=== PATIENT | male | born 1980 | race Caucasian/White ===

== ENCOUNTER 2016-12-01 19:49 | Emergency (ER) | payer OTHER ==
[~2016-12-01] VITALS: Ht 170.2 cm; Wt 78.9 kg
[2016-12-01 20:05] VITALS: Ht 170.2 cm; Wt 78.9 kg
[2016-12-01] MEDS ORDERED: SOD CHLORIDE 0.9% 1,000 ML IV STA (23:16)
[2016-12-02 00:03] LABS: BASOPHILS % 0.3 % (0.0-2.0); EOSINOPHILS # 0.1 10^3/ul (0.0-0.5); EOSINOPHILS % 1.2 % (0.0-7.0); HEMATOCRIT 48.7 % (42.0-52.0); HEMOGLOBIN 16.9 g/dl (14.0-18.0); LYMPHOCYTES # 2.8 10^3/ul (0.8-2.9); LYMPHOCYTES % 36.7 % (15.0-51.0); MEAN CORPUSCULAR HEMOGLOBIN 30.4 pg (29.0-33.0); MEAN CORPUSCULAR HGB CONC 34.7 g/dl (32.0-37.0); MEAN CORPUSCULAR VOLUME 87.8 fl (82.0-101.0); MEAN PLATELET VOLUME 9.3 fl (7.4-10.4); MONOCYTE # 0.4 10^3/ul (0.3-0.9); MONOCYTES % 5.6 % (0.0-11.0); NEUTROPHIL # 4.3 10^3/ul (1.6-7.5); NEUTROPHILS % 56.2 % (39.0-77.0); PLATELET COUNT 182 10^3/UL (140-440); RED BLOOD COUNT 5.54 10^6/ul (4.70-6.10); RED CELL DISTRIBUTION WIDTH 14.9 % (11.5-14.5); UNCORRECTED WBC 7.6 10^3/ul (4.8-10.8); WHITE BLOOD COUNT 7.6 10^3/ul (4.8-10.8)
[2016-12-02 00:12] LABS: ALBUMIN 4.3 g/dl (3.3-4.9); CONDITION 1; LH ANALYZER COMMENTS 1
[2016-12-02 00:13] LABS: POTASSIUM 3.7 mmol/L (3.5-5.1)
[2016-12-02 00:15] LABS: BILIRUBIN,INDIRECT 0.3 mg/dl (0-1.1); BILIRUBIN,TOTAL 0.3 mg/dl (0.2-1.3); CREATININE 0.83 mg/dl (0.61-1.24)
[2016-12-02 00:16] LABS: ALBUMIN/GLOBULIN RATIO 1.26; CALCIUM 8.9 mg/dl (8.4-10.2); TOTAL PROTEIN 7.7 g/dl (6.1-8.1)
--- NOTE | 2016-12-02 01:57 | ERD ---
ER Documentation Chief Complaint Date/Time DATE: 12/02/16 TIME: 01:55 Chief Complaint chest pain/sob x 3 weeks. states drinking etoh daily, smells etoh HPI 36-year-old male who comes with chest pain shortness breath the past 3 days. He says he been drinking alcohol daily. Denies any fevers or chills. Denies any other current complaints. Chest pain is right-sided, mild to moderate intensity and worse when he drinks. ROS All systems reviewed and are negative except as per history of present illness. Allergies Allergies: Coded Allergies: No Known Drug Allergies (Verified Allergy, Unknown, 12/01/16) PMhx/Soc Medical and Surgical Hx: pt denies Surgical Hx Anesthesia Reaction: No Hx Neurological Disorder: No Hx Respiratory Disorders: No Hx Cardiac Disorders: No Hx Psychiatric Problems: Yes (DEPRESSION) Hx Miscellaneous Medical Probl: No Hx Alcohol Use: Yes Hx Substance Use: No Smoking Status: Never smoker Physical Exam Vitals Vital Signs Date Time Temp Pulse Resp B/P Pulse Ox O2 Delivery O2 Flow Rate FiO2 12/01/16 20:05 98.7 114 20 136/92 99 Physical Exam Const: [] Head: Atraumatic Eyes: Normal Conjunctiva ENT: Normal External Ears, Nose and Mouth. Neck: Full range of motion..~ No meningismus. Resp: Clear to auscultation bilaterally Cardio: Regular rate and rhythm, no murmurs Abd: Soft, non tender, non distended. Normal bowel sounds Skin: No petechiae or rashes Back: No midline or flank tenderness Ext: No cyanosis, or edema Neur: Awake and alert Psych: Normal Mood and Affect Result Diagram: 12/01/165 12/01/16 2315 Results 24 hrs Laboratory Tests Test 12/01/16 23:15 Alanine Aminotransferase (ALT/SGPT) 63IU/L Albumin 4.3g/dl Albumin/Globulin Ratio 1.26 Alkaline Phosphatase 120IU/L Anion Gap 23 Aspartate Amino Transf (AST/SGOT) 83IU/L Basophils # 0.010^3/ul Basophils % 0.3% Blood Morphology Comment Blood Urea Nitrogen 11mg/dl Calcium Level 8.9mg/dl Carbon Dioxide Level 26mmol/L Chloride Level 101mmol/L Creatinine 0.83mg/dl Direct Bilirubin 0.00mg/dl Eosinophils # 0.110^3/ul Eosinophils % 1.2% Globulin 3.40g/dl Glucose Level 120mg/dl Hematocrit 48.7% Hemoglobin 16.9g/dl Indirect Bilirubin 0.3mg/dl Lipase 327U/L Lymphocytes # 2.810^3/ul Lymphocytes % 36.7% Mean Corpuscular Hemoglobin 30.4pg Mean Corpuscular Hemoglobin Concent 34.7g/dl Mean Corpuscular Volume 87.8fl Mean Platelet Volume 9.3fl Monocytes # 0.410^3/ul Monocytes % 5.6% Neutrophils # 4.310^3/ul Neutrophils % 56.2% Nucleated Red Blood Cells # 0.010^3/ul Nucleated Red Blood Cells % 0.0/100WBC Platelet Count 76183^3/UL Potassium Level 3.7mmol/L Red Blood Count 5.5410^6/ul Red Cell Distribution Width 14.9% Sodium Level 146mmol/L Total Bilirubin 0.3mg/dl Total Protein 7.7g/dl White Blood Count 7.610^3/ul Current Medications Medications (Trade) Dose Ordered Sig/Delgado Route PRN Reason Start Time Stop Time Status Last Admin Dose Admin Sodium Chloride (NS) 1,000 ml @ 1,000 mls/hr Q1H STAT IV 12/01/16 23:16 12/02/16 00:15 DC 12/01/16 23:26 Procedures/MDM EKG: Rate/Rhythm: Normal Sinus Rhythm QRS, ST, T-waves: No changes consistent w/ acute ischemia Impression: No evidence of ischemia or arrhythmia Medical decision-makin mL is likely alcohol gastritis. He has been advised on drinking. With this regimen Zantac and Carafate. To follow-up in 8 hours here in a serial abdominal examinations which he agrees. Departure Diagnosis: Primary Impression: Alcoholic gastritis Chronicity: acute Gastritis bleeding: without bleeding Qualified Code: K29.20 - Acute alcoholic gastritis without hemorrhage Condition: Stable NETTIE WADE Dec 02, 2016 01:57
[2016-12-02] MEDS ORDERED: RANI150T9 PO (02:16)
[2016-12-02] MEDS ORDERED: SUCR1TAB56 PO (02:16)
[2016-12-02 04:26] VITALS: BP 128/78; PULSE 94; RESP 20; TEMP 98.6
== END 2016-12-02 04:28 | disposition home or self-care (01) ==
LOC: E/R 19:49
DX: K29.20 Alcoholic gastritis without bleeding (principal); R40.2142 Coma scale, eyes open, spontaneous, at arrival to emergency department; R40.2252 Coma scale, best verbal response, oriented, at arrival to emergency department; R40.2362 Coma scale, best motor response, obeys commands, at arrival to emergency department
CPT/HCPCS: 36415; 80053; 83690; 85025; 93005; 99284; J7030